=== PATIENT | female | born 1970 | race Caucasian/White ===

== ENCOUNTER 2017-11-28 12:07 | Emergency (ER) | payer MEDICAID ==
[~2017-11-28] VITALS: Ht 154.9 cm; Wt 81.6 kg
--- NOTE | 2017-11-28 12:42 | NUR ---
PT AMBULATES TO BED 4
[2017-11-28 12:46] VITALS: BP 172/94
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
--- NOTE | 2017-11-28 13:50 | NUR ---
PT STATED LEFT CHEST PAIN 10 AT THIS TIME. L CP ON & OFF THIS AM.
--- NOTE | 2017-11-28 13:57 | NUR ---
Patient being evaluated by DR AYALA at bedside.
--- NOTE | 2017-11-28 13:58 | NUR ---
EKG AT BEDSIDE.
[2017-11-28] MEDS ORDERED: KETOROLAC 60 MG/2 ML VIAL IM ONE (14:10)
[2017-11-28] MEDS ORDERED: ASPIRIN 81 MG TAB.CHEW PO ONE (14:20)
--- NOTE | 2017-11-28 14:40 | NUR ---
PT DENIES LEFT CHEST PAIN BUT STILL HAS RIGHT SHOULDER PAIN /10 AT THIS TIME. HR 43/MIN . DR AYALA NOTIFIED.
[2017-11-28 14:44] LABS: BASOPHILS # (AUTO) 0.1 K/uL (0.00-0.22); BASOPHILS % (AUTO) 0.9 % (0.0-2.0); EOSINOPHILS # (AUTO) 0.4 K/uL (0-0.4); EOSINOPHILS % (AUTO) 3.9 % (0.0-4.0); HEMATOCRIT 40.9 % (36-48); HEMOGLOBIN 13.1 g/dL (12.0-16.0); LYMPHOCYTES # (AUTO) 1.4 K/uL (2.5-16.5); LYMPHOCYTES % (AUTO) 13.5 % (20.5-51.1); MEAN CORPUSCULAR HEMOGLOBIN 27 pg (27-31); MEAN CORPUSCULAR HGB CONC 32 g/dL (33-37); MEAN CORPUSCULAR VOLUME 83.4 fL (80-94); MONOCYTES # (AUTO) 0.6 K/uL (0.8-1.0); MONOCYTES % (AUTO) 5.3 % (1.7-9.3); NEUTROPHILS % (AUTO) 76.4 % (42.2-75.2); PLATELET COUNT (AUTO) 292 K/uL (140-450); RED BLOOD CELL COUNT(AUTO) 4.91 MIL/uL (4.20-5.40); RED CELL DISTRIBUTION WIDTH 16.6 % (11.6-13.7); WHITE BLOOD COUNT (AUTO) 10.4 K/uL (4.8-10.8)
--- NOTE | 2017-11-28 15:06 | NUR ---
Patient appears to be resting comfortably in bed. BP 184/102 P 42, Respirations even and unlabored. 10/30 R SHOULDER PAIN; NOTIFIED DR AYALA.
[2017-11-28 15:47] LABS: ALBUMIN 3.2 g/dL (3.4-5.0); ANION GAP 7.9 (8-16); CARBON DIOXIDE 30.2 mmol/L (21-32); CREATININE 0.9 mg/dL (0.6-1.3); POTASSIUM 4.1 mmol/L (3.5-5.1); TOTAL BILIRUBIN 0.7 mg/dL (0.0-1.0)
[2017-11-28] MEDS ORDERED: HYDROcodone/APAP 5/325 MG 1 TAB TAB PO ONE (15:50)
--- NOTE | 2017-11-28 16:18 | NUR ---
Note emeritamatilde in EDM - 11/28/17 at 1623 by [facility] Patient discharged with v/s stable. Written and verbal after care instructions given and explained. Patient alert, oriented and verbalized understanding of instructions. Ambulatory with steady gait. All questions addressed prior to discharge. ID band removed. Patient advised to follow up with PMD. Rx of NAPROSYN & TRAMADOL given. Patient educated on indication of medication including possible reaction and side effects. Opportunity to ask questions provided and answered.
--- NOTE | 2017-11-28 16:18 | NUR ---
Patient discharged with BP 161/90. P 43 DENIES CP OR PARRISH AT THIS TIME, MD MADE AWARE. Written and verbal after care instructions given and explained. Patient alert, oriented and verbalized understanding of instructions. Ambulatory with steady gait. All questions addressed prior to discharge. ID band removed. Patient advised to follow up with PMD. Rx of NAPROSYN & TRAMADOL given. Patient educated on indication of medication including possible reaction and side effects. Opportunity to ask questions provided and answered.
[2017-11-28 16:19] VITALS: BP 161/90
== END 2017-11-28 16:18 | disposition home or self-care (01) ==
LOC: MED 12:07
DX: S40.011A Contusion of right shoulder, initial encounter (principal); S30.0XXA Contusion of lower back and pelvis, initial encounter; R07.89 Other chest pain; I10 Essential (primary) hypertension; J45.909 Unspecified asthma, uncomplicated; Z90.49 Acquired absence of other specified parts of digestive tract; Z88.1 Allergy status to other antibiotic agents; X50.0XXA Overexertion from strenuous movement or load, initial encounter; Y93.89 Activity, other specified; Y92.89 Other specified places as the place of occurrence of the external cause; Y99.8 Other external cause status
CPT/HCPCS: 36415; 71045; 73030; 80053; 84484; 85025; 93005; 96372; 99285; J1885; Q0092

== ENCOUNTER 2018-03-07 10:47 | Emergency (ER) | payer MEDICAID ==
[~2018-03-07] VITALS: Ht 160 cm; Wt 96.3 kg
[2018-03-07 10:52] VITALS: BP 169/105
[2018-03-07] MEDS ORDERED: KETOROLAC 60 MG/2 ML VIAL IM ONE (11:40)
[2018-03-07 13:10] VITALS: BP 169/105
== END 2018-03-07 13:11 | disposition home or self-care (01) ==
LOC: MED 10:47
DX: S50.02XA Contusion of left elbow, initial encounter (principal); S60.212A Contusion of left wrist, initial encounter; S90.32XA Contusion of left foot, initial encounter; J45.909 Unspecified asthma, uncomplicated; I10 Essential (primary) hypertension; Z88.1 Allergy status to other antibiotic agents; Z90.49 Acquired absence of other specified parts of digestive tract; W01.0XXA Fall on same level from slipping, tripping and stumbling without subsequent striking against object, initial encounter; Y93.89 Activity, other specified; Y92.89 Other specified places as the place of occurrence of the external cause; Y99.8 Other external cause status
CPT/HCPCS: 73080; 73110; 73630; 96372; 99283; J1885

== ENCOUNTER 2018-03-12 12:55 | Emergency (ER) | payer MEDICAID ==
[~2018-03-12] VITALS: Ht 154.9 cm; Wt 96.2 kg
[2018-03-12 13:15] VITALS: BP 177/112
--- NOTE | 2018-03-12 15:00 | NUR ---
PT AMBULATED TO ER BED 12
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
[2018-03-12] MEDS ORDERED: traMADol 50 MG TAB PO ONE (15:45)
[2018-03-12 16:00] VITALS: BP 154/89
--- NOTE | 2018-03-12 16:01 | NUR ---
Patient discharged with v/s stable. Written and verbal after care instructions given and explained. Patient alert, oriented and verbalized understanding of instructions. Ambulatory with steady gait. All questions addressed prior to discharge. ID band removed. Patient advised to follow up with PMD. Rx of TRAMADOL, IBUPROFEN given. Patient educated on indication of medication including possible reaction and side effects. Opportunity to ask questions provided and answered.
== END 2018-03-12 16:01 | disposition home or self-care (01) ==
LOC: MED 12:55
DX: S50.02XA Contusion of left elbow, initial encounter (principal); S50.12XA Contusion of left forearm, initial encounter; S90.32XA Contusion of left foot, initial encounter; I10 Essential (primary) hypertension; J44.9 Chronic obstructive pulmonary disease, unspecified; Z88.1 Allergy status to other antibiotic agents; W19.XXXA Unspecified fall, initial encounter; Y93.89 Activity, other specified; Y92.89 Other specified places as the place of occurrence of the external cause; Y99.8 Other external cause status
CPT/HCPCS: 99283

== ENCOUNTER 2018-11-27 12:42 | Emergency (ER) | payer MEDICAID ==
[~2018-11-27] VITALS: Ht 154.9 cm; Wt 91.2 kg
[2018-11-27 12:45] VITALS: BP 208/112
--- NOTE | 2018-11-27 12:53 | NUR ---
Patient ambulated to bed 1. RN evaluating patient at bedside.
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
--- NOTE | 2018-11-27 13:42 | NUR ---
DR AYALA AT BEDSIDE
--- NOTE | 2018-11-27 14:49 | NUR ---
SLING APPLIED BY GENNY EMT, PULSE WNL
[2018-11-27 15:00] VITALS: BP 187/101
--- NOTE | 2018-11-27 15:00 | NUR ---
Patient discharged with v/s stable. Written and verbal after care instructions given and explained. Patient alert, oriented and verbalized understanding of instructions. Ambulatory with steady gait. All questions addressed prior to discharge. ID band removed. Patient advised to follow up with PMD. Rx of NAPROSYN AND NORCO given. Patient educated on indication of medication including possible reaction and side effects. Opportunity to ask questions provided and answered. PT INSTRUCTED TO TAKE NAPROSYN WITH A MEAL AND TO NOT DRIVE AFTER TAKING NORCO IT MAY IMPAIR DRIVING
== END 2018-11-27 15:00 | disposition home or self-care (01) ==
LOC: MED 12:42
DX: S40.012A Contusion of left shoulder, initial encounter (principal); J44.9 Chronic obstructive pulmonary disease, unspecified; I10 Essential (primary) hypertension; Z90.49 Acquired absence of other specified parts of digestive tract; V89.2XXA Person injured in unspecified motor-vehicle accident, traffic, initial encounter; Y93.89 Activity, other specified; Y92.89 Other specified places as the place of occurrence of the external cause; Y99.8 Other external cause status
CPT/HCPCS: 73000; 73030; 99283

== ENCOUNTER 2018-12-31 18:21 | Emergency (ER) | payer MEDICAID ==
[~2018-12-31] VITALS: Ht 154.9 cm; Wt 94.3 kg
--- NOTE | 2018-12-31 18:21 | NUR ---
Patient BIBA ALS, transferred to bed 7. RN evaluating patient at bedside.
[2018-12-31 18:30] VITALS: BP 225/122
--- NOTE | 2018-12-31 18:48 | NUR ---
48 YEAR OLD PATIENT COMPLAINS OF CHEST DISCOMFORT SINCE YESTERDAY. PATIENT DENIES PAIN. BP 225/122, HR 69. CAP REFILL < 3 SECONDS. PATIENT HAS NAUSEA, VOMITTED YESTERDAY. PATIENT DENIES DIARRHEA. PATIENT COMPLAINS OF HEADACHE PAIN 10. PATIENT ALERT AND ORIENTED. BED IN LOWEST POSITION, LOCKED, GUARD RAIL UPX1.
[2018-12-31] MEDS ORDERED: LABETALOL 100 MG/20 ML VIAL IVP ONE (18:50)
[2018-12-31 19:19] LABS: BASOPHILS % (AUTO) 0.4 % (0.0-2.0); EOSINOPHILS # (AUTO) 0.3 K/uL (0-0.4); EOSINOPHILS % (AUTO) 2.4 % (0.0-4.0); HEMATOCRIT 42.2 % (36-48); HEMOGLOBIN 13.4 g/dL (12.0-16.0); LYMPHOCYTES # (AUTO) 1.4 K/uL (2.5-16.5); LYMPHOCYTES % (AUTO) 13.2 % (20.5-51.1); MEAN CORPUSCULAR HEMOGLOBIN 27 pg (27-31); MEAN CORPUSCULAR HGB CONC 32 g/dL (33-37); MEAN CORPUSCULAR VOLUME 83.7 fL (80-94); MONOCYTES # (AUTO) 0.5 K/uL (0.8-1.0); MONOCYTES % (AUTO) 4.4 % (1.7-9.3); NEUTROPHILS # (AUTO) 8.6 K/uL (1.8-7.7); NEUTROPHILS % (AUTO) 79.6 % (42.2-75.2); PLATELET COUNT (AUTO) 297 K/uL (140-450); RED BLOOD CELL COUNT(AUTO) 5.05 MIL/uL (4.20-5.40); RED CELL DISTRIBUTION WIDTH 16.9 % (11.6-13.7); WHITE BLOOD COUNT (AUTO) 10.9 K/uL (4.8-10.8)
--- NOTE | 2018-12-31 19:20 | NUR ---
RECEIVED REPORT FROM DORI PEREZ. [facility] AT THIS TIME.
--- NOTE | 2018-12-31 19:27 | NUR ---
Dr. Putnam is evaluating the patient at bedside.
[2018-12-31 19:37] LABS: ANION GAP 12.9 (8-16); CARBON DIOXIDE 28.8 mmol/L (21-32); CREATININE 0.9 mg/dL (0.6-1.3); POTASSIUM 3.7 mmol/L (3.5-5.1); TOTAL BILIRUBIN 0.5 mg/dL (0.0-1.0)
--- NOTE | 2018-12-31 19:49 | NUR ---
PT TAKEN TO CT VIA WHEELCHAIR.
--- NOTE | 2018-12-31 19:55 | NUR ---
PT BP 202/112 WITH HR 58. PT C/O THROBBING HEADACHE. CHEVYD MADE AWARE.
--- NOTE | 2018-12-31 20:00 | NUR ---
PT RETURNED FROM CT VIA WHEELCHAIR. PT ATTACHED TO MONITORING SYSTEM.
--- NOTE | 2018-12-31 20:34 | NUR ---
BP 188/[address] SAL MADE AWARE.
[2018-12-31 20:42] LABS: APPEARANCE,URINE HAZY (CLEAR); BILIRUBIN,URINE NEGATIVE (NEGATIVE); BLOOD, URINE NEGATIVE (NEGATIVE); COLOR,URINE YELLOW (YELLOW); LEUKOCYTE ESTERASE ,URINE 1+ (NEGATIVE); NITRITE, URINE NEGATIVE (NEGATIVE); UGLUCOSE NEGATIVE (NEGATIVE)
[2018-12-31 20:54] LABS: RBC,URINE NONE SEEN /HPF (0-5)
[2018-12-31 20:55] LABS: WBC,URINE 16-25 (MOD) /HPF (0-5)
[2018-12-31] MEDS ORDERED: KETOROLAC 30 MG/ML VIAL IVP ONE (20:55)
[2018-12-31] MEDS ORDERED: hydrALAZINE 20 MG/ML VIAL IVP ONE (21:20)
--- NOTE | 2018-12-31 21:20 | NUR ---
PT STATED SOME RELIEF OF PAIN. LIGHT TURNED OFF FOR PT COMFORT.
[2018-12-31] MEDS ORDERED: LEVOFLOXACIN 500 MG/D5W PREMIX 100 ML IV ONE (21:50)
--- NOTE | 2018-12-31 22:05 | NUR ---
PT BP 165/89 WITH HR 80, WILL CONTINUE TO MONITOR.
--- NOTE | 2018-12-31 23:00 | NUR ---
PT SEEN WITH EYES CLOSED. VISIBLE CHEST RISE AND FALL. FAMILY AT BEDSIDE. VSS. WILL CONTINUE TO MONITOR.
[2018-12-31 23:14] VITALS: BP 140/82
--- NOTE | 2018-12-31 23:14 | NUR ---
Patient discharged with v/s stable. Written and verbal after care instructions given and explained. Patient alert, oriented and verbalized understanding of instructions. Ambulatory with steady gait. All questions addressed prior to discharge. ID band removed. Patient advised to follow up with PMD. Rx of CIPRO, HYDRALAZINE given. Patient educated on indication of medication including possible reaction and side effects. Opportunity to ask questions provided and answered.
== END 2018-12-31 23:14 | disposition home or self-care (01) ==
LOC: MED 18:21
DX: I16.0 Hypertensive urgency (principal); N39.0 Urinary tract infection, site not specified; J44.9 Chronic obstructive pulmonary disease, unspecified; Z88.1 Allergy status to other antibiotic agents
CPT/HCPCS: 36415; 70450; 71045; 80053; 81001; 81025; 83880; 84484; 85025; 87086; 93005; 96365; 96375; 99284; J0360; J1885; J1956; J3490; Q0092

== ENCOUNTER 2019-05-18 19:34 | Emergency (ER) | payer MEDICAID ==
[~2019-05-18] VITALS: Ht 152.4 cm; Wt 97.5 kg
[2019-05-18 19:44] VITALS: BP 206/118
[2019-05-18] MEDS ORDERED: hydrALAZINE 20 MG/ML VIAL IVP ONE (21:25)
[2019-05-18 22:28] VITALS: BP 139/81
== END 2019-05-18 22:27 | disposition home or self-care (01) ==
LOC: MED 19:34
DX: S90.32XA Contusion of left foot, initial encounter (principal); I10 Essential (primary) hypertension; J44.9 Chronic obstructive pulmonary disease, unspecified; Z88.1 Allergy status to other antibiotic agents; W20.8XXA Other cause of strike by thrown, projected or falling object, initial encounter; Y93.89 Activity, other specified; Y92.098 Other place in other non-institutional residence as the place of occurrence of the external cause; Y99.8 Other external cause status
CPT/HCPCS: 73630; 96374; 99283; J0360; Q0092

== ENCOUNTER 2019-12-06 14:15 | Inpatient (IN) | payer MEDICAID ==
[~2019-12-06] VITALS: Ht 154.9 cm; Wt 97.5 kg
[2019-12-06 14:19] VITALS: BP 169/107
--- NOTE | 2019-12-06 14:22 | NUR ---
Patient ambulated to bed 11. RN evaluating patient at bedside.
--- NOTE | 2019-12-06 14:25 | NUR ---
49/F c/o abd pain (mostly left sided) with abd bloating, 3x N/V overnight, and constipation since yesterday. Pain is crampy. Pt used fleet glycerin suppository and had diarrhea this morning. Pt did not resolve with passing of BM. VSS. medhx: COPD, HTN
--- NOTE | 2019-12-06 14:52 | NUR ---
DR. REYNOSO EVALUATING PT AT BEDSIDE
[2019-12-06] MEDS ORDERED: ONDANSETRON 4 MG/2 ML VIAL IVP ONE (14:55)
[2019-12-06] MEDS ORDERED: KETOROLAC 30 MG/ML VIAL IVP ONE (14:55)
[2019-12-06 15:08] LABS: APPEARANCE,URINE CLEAR (CLEAR); BILIRUBIN,URINE NEGATIVE (NEGATIVE); BLOOD, URINE 3+ (NEGATIVE); COLOR,URINE YELLOW (YELLOW); LEUKOCYTE ESTERASE ,URINE 1+ (NEGATIVE); NITRITE, URINE NEGATIVE (NEGATIVE); PH,URINE 5.5 (5.0-9.0); UGLUCOSE NEGATIVE (NEGATIVE)
--- NOTE | 2019-12-06 15:13 | NUR ---
EDDIE BLOOD TUBES AND URINE SAMPLE HANDED TO TAKER OFF
[2019-12-06 15:22] LABS: RBC,URINE >100 /HPF (0-5)
[2019-12-06 15:24] LABS: BASOPHILS # (AUTO) 0.1 K/uL (0.00-0.22); BASOPHILS % (AUTO) 0.5 % (0.0-2.0); EOSINOPHILS # (AUTO) 0.1 K/uL (0-0.4); EOSINOPHILS % (AUTO) 0.4 % (0.0-4.0); LYMPHOCYTES # (AUTO) 0.7 K/uL (2.5-16.5); LYMPHOCYTES % (AUTO) 5.2 % (20.5-51.1); MEAN CORPUSCULAR HEMOGLOBIN 27 pg (27-31); MEAN CORPUSCULAR HGB CONC 32 g/dL (33-37); MEAN CORPUSCULAR VOLUME 81.9 fL (80-94); MONOCYTES # (AUTO) 0.8 K/uL (0.8-1.0); MONOCYTES % (AUTO) 5.5 % (1.7-9.3); NEUTROPHILS # (AUTO) 12.3 K/uL (1.8-7.7); NEUTROPHILS % (AUTO) 88.4 % (42.2-75.2); PLATELET COUNT (AUTO) 286 K/uL (140-450); RED BLOOD CELL COUNT(AUTO) 4.88 MIL/uL (4.20-5.40); RED CELL DISTRIBUTION WIDTH 17.5 % (11.6-13.7); WHITE BLOOD COUNT (AUTO) 13.9 K/uL (4.8-10.8)
--- NOTE | 2019-12-06 15:38 | NUR ---
back to bed 11 via wheelchair
[2019-12-06 15:39] LABS: ALBUMIN 3.3 g/dL (3.4-5.0); ANION GAP 11.6 (8-16); CARBON DIOXIDE 28.8 mmol/L (21-32); CREATININE 1.8 mg/dL (0.6-1.3); POTASSIUM 3.4 mmol/L (3.5-5.1); TOTAL BILIRUBIN 0.7 mg/dL (0.0-1.0)
--- NOTE | 2019-12-06 15:46 | NUR ---
DR. REYNOSO RE-EVALUATING PT AT BEDSIDE
[2019-12-06] MEDS ORDERED: NACL 0.9% 1,000 ML IV ONE (16:40)
[2019-12-06] MEDS ORDERED: MORPHINE SULFATE 4 MG/ML SYR IVP ONE (16:40)
[2019-12-06] MEDS ORDERED: HYDR-39 PO (16:51)
[2019-12-06] MEDS ORDERED: HYDR-1100 PO (16:51)
[2019-12-06] MEDS ORDERED: LON2.5 PO (16:51)
[2019-12-06] MEDS ORDERED: cefTRIAXone 1,000 MG VIAL ONE (17:02)
[2019-12-06] MEDS ORDERED: ZOLPIDEM 5 MG TAB PO PRN (17:30)
[2019-12-06] MEDS ORDERED: MORPHINE SULFATE 2 MG/ML SYR IVP PRN (17:30)
[2019-12-06] MEDS: NACL 0.9% 1,000 ML IV SCH ×2 (17:30→23:53)
[2019-12-06] MEDS ORDERED: LORazepam 2 MG/ML VIAL IM/IVP PRN (17:30)
[2019-12-06] MEDS ORDERED: ONDANSETRON 4 MG/2 ML VIAL IVP PRN (17:30)
[2019-12-06] MEDS ORDERED: DOCUSATE SODIUM 100 MG GELCAP PO PRN (17:30)
--- NOTE | 2019-12-06 17:42 | NUR ---
DR. EVANS EVALUATING PT AT BEDSIDE
[2019-12-06 17:59] LABS: PROTHROMBIN TIME 9.6 secs (10.8-13.4)
[2019-12-06 18:03] LABS: CHOL/HDL RATIO 4.8 (1-4.5); FREE T4 (FREE THYROXINE) 1.12 ng/dL (0.76-1.46); MAGNESIUM 1.8 mg/dL (1.8-2.4); PHOSPHORUS 3.6 mg/dL (2.5-4.9); THYROID STIMULATING HORMONE 2.65 uIU/mL (0.34-3.74)
[2019-12-06 18:22] LABS: BARBITURATE, URINE NEGATIVE ng/ml (NEG <=200); BENZODIAZEPINE, URINE NEGATIVE ng/mL (NEG <=200); CANNABINOID, URINE NEGATIVE ng/mL (NEG <=50); COCAINE, URINE NEGATIVE ng/mL (NEG <=300); OPIATE, URINE NEGATIVE ng/mL (NEG <=2000); PHENCYCLIDINE SCREEN,URINE NEGATIVE ng/mL (NEG <=25)
--- NOTE | 2019-12-06 18:25 | NUR ---
RECEIVED REPORT FROM ER NURSE JESUS ALBERTO ADMITTED TO THE UNIT VIA WHEELCHAIR, ON 2LPM OXYGEN VIA NC, AAOX4, AMBULATORY, CONTINENT, SKIN INTACT, IV SITES INTACT AND PATENT ON LEFT AC G20 RUNNING A BOLUS OF SODIUM CHLORIDE.ASSISTED TO BED AND ORIENTED TO ROOM, VITAL SIGNS TAKEN BP 127/80, KS 84 RR 20 TEMP: 98.2 OXYGEN SAT 93%. PATIENT IS ON OXYGEN 2 LPM AT HOME FOR COPD. CT ABDOMEN DONE WHICH SHOWS MILD-MODERATE LEFT HYDRONEPHROSIS POSSIBLE PYELONEPHRITIS. ER NURSE GAVE ZOFRAN 4MG, TORADOL, MORPHINE AT 1710 AND ROCEPHIN 1G AND 1LITER SODIUM CHLORIDE BOLUS.SAFETY MEASURES IN PLACE, CALL LIGHT WITHIN REACH.
--- NOTE | 2019-12-06 18:25 | NUR ---
Patient will be admitted to care of DR. EVANS. Admited to TELE. Will go to room 125A. Belongings list completed. Report to MAGEN MEADOWS.
--- NOTE | 2019-12-06 19:05 | NUR ---
ENDORSED PT TO NIGHT NURSE FOR CONTINUITY OF CARE.PT IS STABLE
--- NOTE | 2019-12-06 19:08 | NUR ---
RECEIVED PATIENT IN STABLE CONDITION FROM AM SHIFT NURSE FOR CONTINUITY OF CARE. TELE PATIENT. AAOX4 ABLE TO MAKE NEEDS KNOWN. RESPIRATIONS EVEN, UNLABORED. CONTINUES ON O2 2L VIA NC, O2SAT 98%. NO C/O PAIN. NO S/S ACUTE DISTRESS. SKIN ASSESSMENT COMPLETE. SKIN INTACT. SKIN WARM, DRY. IV SITE TO LEFT AC 20G PATENT/INTACT, FLUIDS INFUSING WELL. ABDOMEN SOFT, NONTENDER, NONDISTENDED. BOWEL SOUNDS ACTIVE X4 QUADRANTS. PATIENT IS CONTINENT OF B/B. PLAN OF CARE DISCUSSED WITH PATIENT. PATIENT ORIENTED TO CALL LIGHT/STAFF/ROOM. MRSA SCREEN COMPLETED. CALL LIGHT WITHIN REACH.
[2019-12-06] MEDS ORDERED: POTASSIUM CHLORIDE 10 MEQ TABER PO ONE (19:35)
[2019-12-06 20:00] VITALS: BP 129/69
[2019-12-06] MEDS: hydrALAZINE 25 MG TAB PO SCH (20:08)
[2019-12-06] MEDS: minoxidiL 2.5 MG TAB PO SCH (20:09)
--- NOTE | 2019-12-06 21:05 | NUR ---
DUE MEDS GIVEN. NO C/O PAIN. NO S/S ACUTE DISTRESS. CALL LIGHT WITHIN REACH.
--- NOTE | 2019-12-06 23:10 | NUR ---
PATIENT IS RESTING COMFORTABLY IN BED WITH EYES CLOSED. NO S/S ACUTE DISTRESS. CALL LIGHT WITHIN REACH.
[2019-12-07] VITALS: BP 113/65
--- NOTE | 2019-12-07 01:15 | NUR ---
MADE ROUNDS. PATIENT IS ASLEEP. NO S/S ACUTE DISTRESS. CALL LIGHT WITHIN REACH.
--- NOTE | 2019-12-07 03:48 | NUR ---
PATIENT IS ASLEEP AND IN NO DISTRESS. CALL LIGHT WITHIN REACH.
[2019-12-07 04:00] VITALS: BP 119/68
[2019-12-07 05:50] LABS: BASOPHILS % (AUTO) 0.4 % (0.0-2.0); EOSINOPHILS # (AUTO) 0.1 K/uL (0-0.4); EOSINOPHILS % (AUTO) 1.2 % (0.0-4.0); HEMATOCRIT 38.7 % (36-48); HEMOGLOBIN 12.2 g/dL (12.0-16.0); LYMPHOCYTES # (AUTO) 0.6 K/uL (2.5-16.5); MEAN CORPUSCULAR HEMOGLOBIN 26 pg (27-31); MEAN CORPUSCULAR HGB CONC 31 g/dL (33-37); MEAN CORPUSCULAR VOLUME 83.7 fL (80-94); MONOCYTES # (AUTO) 0.4 K/uL (0.8-1.0); MONOCYTES % (AUTO) 3.8 % (1.7-9.3); NEUTROPHILS # (AUTO) 10.2 K/uL (1.8-7.7); NEUTROPHILS % (AUTO) 89.6 % (42.2-75.2); PLATELET COUNT (AUTO) 299 K/uL (140-450); RED BLOOD CELL COUNT(AUTO) 4.63 MIL/uL (4.20-5.40); RED CELL DISTRIBUTION WIDTH 17.5 % (11.6-13.7); WHITE BLOOD COUNT (AUTO) 11.3 K/uL (4.8-10.8)
--- NOTE | 2019-12-07 05:51 | NUR ---
PATIENT RESTING COMFORTABLY IN BED. NO C/O PAIN. NO S/S ACUTE DISTRESS. CALL LIGHT WITHIN REACH.
[2019-12-07 06:06] LABS: ANION GAP 13.7 (8-16); CARBON DIOXIDE 25.4 mmol/L (21-32); CREATININE 1.3 mg/dL (0.6-1.3); POTASSIUM 4.1 mmol/L (3.5-5.1)
[2019-12-07 06:46] LABS: MAGNESIUM 1.9 mg/dL (1.8-2.4); PHOSPHORUS 3.9 mg/dL (2.5-4.9)
--- NOTE | 2019-12-07 07:15 | NUR ---
RECEIVED PATIENT IN STABLE CONDITION FROM PM SHIFT NURSE FOR CONTINUITY OF CARE. TELE PATIENT. AAOX4 ABLE TO MAKE NEEDS KNOWN. RESPIRATIONS EVEN, UNLABORED. CONTINUES ON O2 2L VIA NC, O2SAT 99%. NO C/O PAIN AT THIS TIME. NO S/S ACUTE DISTRESS. SKIN ASSESSMENT COMPLETE. SKIN INTACT. SKIN WARM, DRY. IV SITE TO LEFT AC 20G PATENT, ASYMPTOMATIC, AND INTACT, INFUSING FLUIDS WELL. ABDOMEN SOFT, NONTENDER, NONDISTENDED. BOWEL SOUNDS ACTIVE X4 QUADRANTS. PLAN OF CARE DISCUSSED WITH PATIENT.PATIENT VERBALIZED UNDERSTANDING. CALL LIGHT WITHIN REACH. WILL CONTINUE TO MONITOR PATIENT.
[2019-12-07 08:00] VITALS: BP 138/92
[2019-12-07] MEDS: lisinopriL 20 MG TAB PO SCH (08:52)
[2019-12-07] MEDS: hydrALAZINE 25 MG TAB PO SCH ×2 (08:52→20:37)
[2019-12-07] MEDS: minoxidiL 2.5 MG TAB PO SCH ×2 (08:52→20:37)
--- NOTE | 2019-12-07 08:52 | NUR ---
SCHEDULED MEDICATIONS GIVEN. PATIENT TOLERATED THEM WELL. NO COMPLAINTS AT THIS TIME. CALL LIGHT WITHIN REACH, WILL CONTINUE TO MONITOR PATIENT.
[2019-12-07] MEDS: hydroCHLOROthiazide 25 MG TAB PO SCH (08:53)
--- NOTE | 2019-12-07 09:20 | NUR ---
PATIENT HAS BEEN SCREENED AND CATEGORIZED LOW NUTRITION RISK. PATIENT WILL BE SEEN WITHIN 7 DAYS OF ADMISSION. 12/13/[address]
[2019-12-07] MEDS: NACL 0.9% 1,000 ML IV SCH ×2 (10:23→20:36)
[2019-12-07] MEDS: ACETAMINOPHEN 325 MG TAB PO PRN ×2 (10:32→22:07)
--- NOTE | 2019-12-07 10:32 | NUR ---
PATIENT C/O OF ABD PAIN 5/10, OFFERED PRN PAIN MEDICATION, PATIENT REFUSED AT THIS TIME. PATIENT DID ACCEPT TYLENOL PRN FOR C/O HEADACHE. WILL CONTINUE TO MONITOR PATIENT.
[2019-12-07] MEDS ORDERED: MONTELUKAST SODIUM 10 MG TAB PO SCH (11:11)
[2019-12-07 12:00] VITALS: BP 120/70
--- NOTE | 2019-12-07 12:04 | NUR ---
PATIENT C/O OF ANXIETY, PRN ATIVAN GIVEN. DR. EVANS IN TO SPEAK TO THE PATIENT. PATIENT C/O OF ANXIETY AND CHEST TIGHTNESS. BP 120/70, HR 110, O2 99% ON 2L O2 VIA NC, TEMP 98.2, RR 23. NEW ORDERS IN. WILL WAIT FOR RESULTS. CALLED RT TO COME ASSESS PATIENT. CALL LIGHT WITHIN REACH, WILL CONTINUE TO MONITOR PATIENT.
--- NOTE | 2019-12-07 13:39 | NUR ---
DISCHARGE PLANNING: THIS IS A 49 Y/O FEMALE PATIENT FROM HOME, WHO CAME IN DUE TO ABDOMINAL PAIN. PAST MEDICAL HISTORY INCLUDE HTN, TRESSA, COPD. INITIAL DIAGNOSIS OF PYELONEPHRITIS WITH HYDRONEPHROSIS. CURRENT LABS INCLUDE WBC 11.3, H/H 12.2/38.7, NA/K 139/4.1, BUN/CREA 18/1.3. ON ROCEPHIN AND ORETIC PO. ABD/PELVIS CT SHOWED MILD TO MODERATE HYDRONEPHROSIS WITHOUT VISUALIZATION OF AN OBSTRUCTING CALCULUS. CXR NEGATIVE. CARDIO AND URO CONSULTS IN PLACE. DC PLAN BACK TO HOME ONCE STABLE. Addendum: 12/09/19 at 1225 by Marilyn Rivas CM SEEN BY UROLOGIST DR CHRISTIANSON - REQUESTED RENAL U/S.
[2019-12-07] MEDS ORDERED: ALBUTEROL SULFATE/IPRATROPIU 3 ML SOL IH PRN (13:55)
--- NOTE | 2019-12-07 14:55 | NUR ---
PATIENT RESTING IN BED, RESPIRATIONS EVEN AND UNLABORED ON 2L O2 VIA NC. ALL NEEDS MET AT THIS TIME. CALL LIGHT WITHIN REACH, WILL CONTINUE TO MONITOR PATIENT.
[2019-12-07 16:00] VITALS: BP 117/62
--- NOTE | 2019-12-07 17:00 | NUR ---
SCHEDULED MEDICATION GIVEN. PATIENT TOLERATING IT. NO COMPLAINTS AT THIS TIME. PATIENT'S STATES TOLERABLE PAIN AND REFUSED PRN PAIN MEDICATION. CALL LIGHT WITHIN REACH, WILL CONTINUE TO MONITOR PATIENT.
--- NOTE | 2019-12-07 19:10 | NUR ---
RECEIVED PT SLEEPING - CHEST RISE AND FALL - PER AM NURSE - PT GOT ATIVAN BECAUSE THE PT. SHOWED ANXIETY , GOT TYLENOL DUE TO PT'S COMPLAINED OF HEADACHE . PER AM NURSE PT HAS HX OF SLEEP APNEA - AND SHE AND DR ELIZABETH HAD CONVERSATION THIS AM AND SHE ASKED IF SHE AGREE FOR CPAP AT NIGHT FOR THE PT. AND DR. ELIZABETH AGREED FOR THAT , BUT SHE DID NOT PUT AN ORDER FOR THAT - WILL REMIND DR. ELIZABETH . IV SITE INTACT AND PATENT . ON TELE MONITOR . WILL CONT. TO MONITOR. CALL LIGHT WITHIN REACH .
--- NOTE | 2019-12-07 19:10 | NUR ---
REPORT GIVEN TO ACQUISITION MANAGER NURSE AT BEDSIDE FOR CONTINUITY OF CARE. PATIENT SLEEPING COMFORTABLY IN BED, IN STABLE CONDITION.
[2019-12-07 20:00] VITALS: BP 115/75
--- NOTE | 2019-12-07 20:05 | NUR ---
RE VIST PT. - PT AWAKE , AAOX4 , DENIES ANY PAIN - REMINDS THE USE OF CALL LIGHT . PLAN OF CARE DISCUSS AND VERBALIZE UNDERSTANDING . SAFETY MEASURE IN PLACE . WILL CONT. TO MONITOR. Addendum: 12/07/19 at 2007 by Amanda Bedolla RN THE WORD VIST IN ABOVE NURSE'S NOTE IS TYPOGRAPHICALLY ERROR , INSTEAD OF VISIT .- CARLOS
--- NOTE | 2019-12-07 20:08 | NUR ---
TEXT DR. ELIZABETH ABOUT CONFIRMATION OF CPAP ORDER - WILL WAIT THE RESPONSE .
--- NOTE | 2019-12-07 20:51 | NUR ---
PT. REFUSE FOR CPAP - I EXPLAIN TO HER THE IMPORTANCE OF IT - BUT STILL PT. REFUSE. Addendum: 12/07/19 at 2052 by Amanda Bedolla RN PT SAID SHE IS COMFORTABLE TO GO SLEEP WTH OUT CPAP , PT. IS ON 2LPM/NC - O2 SAT WNL .
--- NOTE | 2019-12-07 20:52 | NUR ---
PT SLEEPING COMFORTABLY SOME SNORING NOTED WILL CONTINUE TO MONITOR
[2019-12-08] VITALS: BP 106/60
--- NOTE | 2019-12-08 | NUR ---
MADE ROUNDS , NO S/SX OF ACUTE DISTRESS NOTED AT THIS TIME . CALL LIGHT WITHIN REACH .
--- NOTE | 2019-12-08 02:00 | NUR ---
SLEEPING - ON O2 SAT MONITOR - O2 SAT WNL .
[2019-12-08 04:00] VITALS: BP 130/78
--- NOTE | 2019-12-08 04:00 | NUR ---
MADE ROUNDS , NO S/SX OF ACUTE DISTRESS NOTED .
[2019-12-08 05:40] LABS: BASOPHILS # (AUTO) 0.1 K/uL (0.00-0.22); BASOPHILS % (AUTO) 0.9 % (0.0-2.0); HEMATOCRIT 38.4 % (36-48); HEMOGLOBIN 12.1 g/dL (12.0-16.0); LYMPHOCYTES # (AUTO) 0.4 K/uL (2.5-16.5); LYMPHOCYTES % (AUTO) 3.5 % (20.5-51.1); MEAN CORPUSCULAR HEMOGLOBIN 26 pg (27-31); MEAN CORPUSCULAR HGB CONC 32 g/dL (33-37); MEAN CORPUSCULAR VOLUME 83.5 fL (80-94); MONOCYTES # (AUTO) 0.4 K/uL (0.8-1.0); MONOCYTES % (AUTO) 3.5 % (1.7-9.3); NEUTROPHILS % (AUTO) 92.1 % (42.2-75.2); PLATELET COUNT (AUTO) 329 K/uL (140-450); RED CELL DISTRIBUTION WIDTH 17.8 % (11.6-13.7); WHITE BLOOD COUNT (AUTO) 10.9 K/uL (4.8-10.8)
--- NOTE | 2019-12-08 06:00 | NUR ---
SLEEPING - O2 SAT WNL . - ON O2 SAT MONITORING
[2019-12-08 06:06] LABS: ANION GAP 10.3 (8-16); CARBON DIOXIDE 29.7 mmol/L (21-32)
[2019-12-08 06:37] LABS: MAGNESIUM 2.1 mg/dL (1.8-2.4); PHOSPHORUS 3.6 mg/dL (2.5-4.9)
--- NOTE | 2019-12-08 07:24 | NUR ---
ENDORSED TO AM NURSE - PT - STABLE .
[2019-12-08 08:00] VITALS: BP 141/84
--- NOTE | 2019-12-08 08:00 | NUR ---
RECEIVED REPORT FROM EDUCATIONAL PROGRAM ASSISTANT, PATIENT ALERT AWAKE ORIENTED X4, NOT IN ANY DISTRESS NOTED. INITIAL ASSESSMENT INITIATED. C/O ABDOMINAL PAIN, WILL MEDICATE ORDERED. NPO OBSERVED ORDER. WAITING FOR THE UROLOGY CONSULT. PATIENT USING 2L NC, VERBALIZED THAT SHE'S FINE WITH THAT. PATIENT SNORES MOST OF THE TIME. REMIND HER THAT SHE NEEDS TO USE HER CPAP AND IN AGREEABLE. RT WILL DO ABG. WILL CONTINUE TO MONITOR.
[2019-12-08] MEDS: hydroCHLOROthiazide 25 MG TAB PO SCH (08:40)
[2019-12-08] MEDS: hydrALAZINE 25 MG TAB PO SCH ×2 (08:40→20:56)
[2019-12-08] MEDS: MONTELUKAST SODIUM 10 MG TAB PO SCH (08:40)
[2019-12-08] MEDS: lisinopriL 20 MG TAB PO SCH (08:42)
[2019-12-08] MEDS: minoxidiL 2.5 MG TAB PO SCH ×2 (08:43→21:00)
[2019-12-08] MEDS: NACL 0.9% 1,000 ML IV SCH ×2 (08:50→19:30)
--- NOTE | 2019-12-08 09:45 | NUR ---
RECEIVED REPORT FROM NURSE CONNOLLY FOR CONTINUITY OF CARE, PT IS STABLE, PT ASLEEP, PT ON 2L OXYGEN VIA NC, PT HAS LEFT AC 20G INFUSING NS AT 100 ML/H, SKIN INTACT, BED IN LOW POSITION AND SAFETY MEASURES IN PLACE, CALL LIGHT WITHIN REACH, WILL CONTINUE TO MONITOR.
--- NOTE | 2019-12-08 09:55 | NUR ---
REPORT GIVEN TO DORI ZARATE FOR CONTINUITY OF CARE.
--- NOTE | 2019-12-08 11:00 | NUR ---
PT SLEEPING IN BED, NO SIGNS OF DISTRESS NOTED, RESPIRATIONS ARE EVEN AND UNLABORED ON ROOM AIR, CALL LIGHT WITHIN REACH, WILL CONTINUE TO MONITOR.
[2019-12-08 12:00] VITALS: BP 114/64
--- NOTE | 2019-12-08 13:00 | NUR ---
PT SITTING UP IN BED, NO SIGNS OF DISTRESS NOTED, PT IS STABLE, CALL LIGHT WITHIN REACH, WILL CONTINUE TO MONITOR.
--- NOTE | 2019-12-08 15:03 | NUR ---
IV ALARMING, SECURED IV TO ARM, PT IS SITTING IN CHAIR, NO SIGNS OF DISTRESS NOTED, RESPIRATIONS ARE EVEN AND UNLABORED ON ROOM AIR, PT IS STABLE, WILL CONTINUE TO MONITOR.
[2019-12-08 16:00] VITALS: BP 106/72
--- NOTE | 2019-12-08 17:28 | NUR ---
ADMINISTERED SCHEDULED MEDICATION, MEDICATION EDUCATION PROVIDED, PT VERBALIZED UNDERSTANDING, PT TOLERATED WELL, PT IS STABLE, CALL LIGHT WITHIN REACH, WILL CONTINUE TO MONITOR.
--- NOTE | 2019-12-08 19:20 | NUR ---
ENDORSE PT TO NIGHT NURSE FOR CONTINUITY OF CARE, PT IS STABLE
--- NOTE | 2019-12-08 19:20 | NUR ---
RECEIVED BEDSIDE REPORT FROM DAY SHIFT NURSE FOR CONTINUITY OF CARE. PT IS AWAKE AND ALERT, RESPONDING APPROPRIATELY. PT IS AT 90% O2 SAT WITH BREATHING UNLABORED. WAS INFORMED THAT PT CAN DESAT DURING SLEEP, CPAP AT BEDSIDE. PT IS AMBULATORY WITH BATHROOM PRIVILEGES. STRAINED URINE AT CHANGE OF SHIFT FOR CALCULUS BUT NO CALCULUS WAS NOTED. SKIN IS WARM, DRY, AND INTACT. IV IS IN THE LEFT AC 20 GAUGE RUNNING NS AT 100 ML PER HOUR PER ORDER. PLAN OF CARE WAS DISCUSSED. BED IS IN THE LOWEST POSITION AND CALL LIGHT IS WITHIN REACH. PT IS STABLE.
--- NOTE | 2019-12-08 20:13 | NUR ---
PT LAYING IN BED WATCHING TV PT STATED SHE GETS ANXIOUS W/ NIV BUT IS WILLING TO ATTEMPT PAP PT IS REQUESTING TO COME BACK FOR NOC NIV ROUGHLY 2200 PT RESTING COMFORTABLY ON 2LNC SPO2 99% HR 100 NO DISTRESS NOTED AT THIS TIME
--- NOTE | 2019-12-08 21:30 | NUR ---
PT IS AWAKE AND ALERT. NO COMPLAINTS OF PAIN. PT VOIDED AND URINE WAS STRAINED FOR CALCULUS. NO CALCULUS WAS IN THE URINE SO THERE WAS NOTHING TO BE COLLECTED. PT WILL CONTINUE TO COLLECT URINE IN THE COLLECTION CONTAINER FOR STRAINING. BREATHING IS UNLABORED. NO DISTRESS NOTED.
[2019-12-08 23:07] VITALS: BP 93/51
--- NOTE | 2019-12-08 23:07 | NUR ---
PT PLACED ON NOC PAP PT PLACED ON CPAP OF 8 (HOME UNIT SET @ 8 CMH2O PER PT) PT WAS A LITTLE ANX/UNCOMFORTABLE W/ NIV AND 15MIN RAMP ENABLED FOR PT COMFORT
--- NOTE | 2019-12-08 23:10 | NUR ---
RT AT BEDSIDE. PLACED CPAP ON PT FOR SLEEP. BREATHING IS UNLABORED. CHEST RISE AND FALL IS SYMMETRICAL. O2 SAT IS 98%. WILL CONTINUE TO MONITOR PT'S BREATHING.
[2019-12-09] VITALS: BP 103/48
--- NOTE | 2019-12-09 01:00 | NUR ---
ROUNDED ON PT. SHE IS ASLEEP IN HIGH FOWLERS POSITION. NO RESPIRATORY DISTRESS AT THIS TIME. O2 SAT IS 95%. CHEST RISE AND FALL IS SYMMETRICAL. BED IS IN THE LOWEST POSITION CALL LIGHT IS WITHIN REACH. BELONGINGS AND CELL PHONE ARE AT THE BEDSIDE. IV IS PATENT AND INFUSING.
--- NOTE | 2019-12-09 02:31 | NUR ---
RT IS AT BEDSIDE. CHECKED ON PT WITH CPAP. SHE IS TOLERATING CPAP WELL. O2 SAT IS 97%. BREATHING IS UNLABORED. WILL CONTINUE TO MONITOR BREATHING PATTERN.
--- NOTE | 2019-12-09 04:30 | NUR ---
ROUNDED ON PT. SHE IS ASLEEP IN HIGH FOWLERS. CPAP IS ON AND O2 SAT IS 98%. PT IS TOLERATING TREATMENT WELL. PT HAS WOKEN UP ONLY A FEW TIMES SINCE THE CPAP WAS PLACED. SLEEP IS LESS INTERRUPTED. BREATHING IS UNLABORED. CELL PHONE IS AT BEDSIDE WITH OTHER BELONGINGS. URINE HAS BEEN STRAINED AND STILL NO CALCULUS. PT IS STABLE.
[2019-12-09 05:30] LABS: BASOPHILS # (AUTO) 0.1 K/uL (0.00-0.22); BASOPHILS % (AUTO) 0.7 % (0.0-2.0); EOSINOPHILS # (AUTO) 0.4 K/uL (0-0.4); EOSINOPHILS % (AUTO) 3.2 % (0.0-4.0); HEMATOCRIT 35.3 % (36-48); HEMOGLOBIN 11.3 g/dL (12.0-16.0); LYMPHOCYTES # (AUTO) 0.7 K/uL (2.5-16.5); LYMPHOCYTES % (AUTO) 6.5 % (20.5-51.1); MEAN CORPUSCULAR HEMOGLOBIN 27 pg (27-31); MEAN CORPUSCULAR HGB CONC 32 g/dL (33-37); MONOCYTES # (AUTO) 0.7 K/uL (0.8-1.0); MONOCYTES % (AUTO) 5.9 % (1.7-9.3); NEUTROPHILS # (AUTO) 9.3 K/uL (1.8-7.7); NEUTROPHILS % (AUTO) 83.7 % (42.2-75.2); PLATELET COUNT (AUTO) 300 K/uL (140-450); RED BLOOD CELL COUNT(AUTO) 4.25 MIL/uL (4.20-5.40); RED CELL DISTRIBUTION WIDTH 17.3 % (11.6-13.7); WHITE BLOOD COUNT (AUTO) 11.1 K/uL (4.8-10.8)
[2019-12-09] MEDS: NACL 0.9% 1,000 ML IV SCH ×3 (05:30→21:30)
[2019-12-09 06:03] LABS: ANION GAP 9.8 (8-16); CARBON DIOXIDE 29.8 mmol/L (21-32); CREATININE 0.9 mg/dL (0.6-1.3); POTASSIUM 3.6 mmol/L (3.5-5.1)
[2019-12-09 06:08] LABS: MAGNESIUM 1.6 mg/dL (1.8-2.4); PHOSPHORUS 2.5 mg/dL (2.5-4.9)
--- NOTE | 2019-12-09 06:29 | NUR ---
PT IS ASLEEP. NO RESPIRATORY DISTRESS NOTED. IV IS PATENT AND INFUSING. PT IS NOT SHOW ANY SIGNS OF DISTRESS.
--- NOTE | 2019-12-09 07:20 | NUR ---
RECEIVED PT ON CPAP. PT IS STILL CURRENTLY SLEEPING AND WILL COME OFF CPAP WHEN AWAKE.
--- NOTE | 2019-12-09 07:20 | NUR ---
ENDORSED PT TO DAY SHIFT NURSE FOR CONTINUITY OF CARE. PLAN OF CARE DISCUSSED. PT IS STABLE AT THIS TIME. PT IS ASLEEP AND CPAP IS IN PLACE. O2 SAT IS 98%.
--- NOTE | 2019-12-09 07:21 | NUR ---
RECEIVED REPORT FROM PM RNEZRA. PT CAME FROM HOME. CC: LT ABD FLANK PAIN. DX: PYELONEPHRITIS WITH HYDRONEPHROSIS. HX: COPD, HTN, KIDNEY STONES, SLEEP APNEA. PT IS ALLERGIC TO VANCO. PT IS FULL CODE. IV: LAC 20G RUNNING NS AT 100. DIET: CARDIAC. PT IS ABLE TO AMBULATE, INDEPENDENT. O2: PT IS ON CPAP PM, NC 2L DAY. PPLAN: STRAIN URINE FOR KIDNEY STONES, F/U STRESS TEST OUTPATIENT
[2019-12-09 08:00] VITALS: BP 118/77
[2019-12-09] MEDS: lisinopriL 20 MG TAB PO SCH (08:55)
[2019-12-09] MEDS: hydrALAZINE 25 MG TAB PO SCH ×2 (08:55→20:24)
[2019-12-09] MEDS: MONTELUKAST SODIUM 10 MG TAB PO SCH (08:56)
[2019-12-09] MEDS: minoxidiL 2.5 MG TAB PO SCH ×2 (08:56→20:26)
[2019-12-09] MEDS: HYDROcodone/APAP 5/325 MG 1 TAB TAB PO PRN (09:03)
--- NOTE | 2019-12-09 09:03 | NUR ---
PASSED MEDICATIONS TO PT. VS STABLE. PT COMPLAINING OF PAIN, 08/29. PT DID NOT WANT MORPHINE. GAVE PT A NORCO.
--- NOTE | 2019-12-09 09:21 | NUR ---
PT OFF CPAP MACHINE, ON RA SATURATING 97%. NO RESPIRATORY DISTRESS NOTED.
--- NOTE | 2019-12-09 10:00 | NUR ---
PT COMPLAINING OF IV LEAKING. ASSESSED IV. IV IS PATENT. PLACED NEW DRESSING. PT IS RESTING IN BED. NO COMPLAINTS OF PAIN.
--- NOTE | 2019-12-09 12:20 | NUR ---
SOCIAL WORK NOTE: Patient's Orientation Unable To Assess Information Provided By GRACE PEDRO - DAUGHTER Comments SW WAS UNABLE TO MEET PATIENT AT BEDSIDE. SW COMPLETED ASSESSMENT WITH PATIENT'S DAUGHTER GRACE AND VERIFIED DEMOGRAPHICS. Insurance Advisor, Realtionship and Phone Number GRACE PEDRO DAUGHTER [phone] [facility] Power of Child Welfare Assistant No Does Patient Have a POLST No Identifying Problems No Social Work Triggers Is A Social Work Consult Needed No Mandate Report Filed No Explanation Of Identifying Problems PATIENT IS A 49-YEAR-OLD FEMALE ADMITTED FOR PYELONEPHRITIS. PATIENT HAS PMHX OF HYPERTENSION, COPD, TRESSA, AND NEPHROLITHIASIS. PATIENT'S DAUGHTER REPORTED NO HISTORY OF SUBSTANCE ABUSE OR MENTAL HEALTH. Admitted From Home Pre-Admission Level Of Functioning Status Independent/Ambulatory Prior Resources/Services Used In Last 12 Months No Prior Resources Used Prior DME No Prior DME Used Dialysis Comments PER DAUGHTER, PATIENT DOES NOT RECEIVE DIALYSIS. Living Situation Apartment Lives With Family Patient Had Caregiver No Home Support No Caregiver Issues Financial Issues No Known Financial Issue Referral To The Financial Counselor Needed No Factors/Needs No D/C Needs Identified Pt/Rep Participated In Discharge Plan Yes Patient/Family Agress With Discharge Plan Yes Discharge Plan Comments TENTATIVE DISCHARGE PLAN IS FOR PATIENT TO RETURN HOME. DC Plan Status Initiated
--- NOTE | 2019-12-09 13:37 | NUR ---
INITATED NEW IV INSERTION. PT HAS A RAC 22G RUNNING NS AT 100. ONLY 2 ATTEMPTS. NO COMPLAINTS OF PAIN. PT IS EATING LUNCH. NO SIGNS OF DISTRESS.
[2019-12-09 16:00] VITALS: BP 110/56
--- NOTE | 2019-12-09 16:00 | NUR ---
PT IS RESTING IN BED. NO COMPLAINTS OF PAIN. RESPIRATIONS ARE EVEN AND UNLABORED.
[2019-12-09 16:04] LABS: APPEARANCE,URINE CLEAR (CLEAR); BILIRUBIN,URINE NEGATIVE (NEGATIVE); BLOOD, URINE NEGATIVE (NEGATIVE); COLOR,URINE YELLOW (YELLOW); LEUKOCYTE ESTERASE ,URINE TRACE (NEGATIVE); NITRITE, URINE NEGATIVE (NEGATIVE); PH,URINE 5.5 (5.0-9.0); UGLUCOSE NEGATIVE (NEGATIVE)
[2019-12-09 16:21] LABS: COARSE GRANULAR CASTS,URINE 0-10 /LPF (None Seen); RBC,URINE 0-5 /HPF (0-5)
--- NOTE | 2019-12-09 19:33 | NUR ---
TRANSFER OF CARE TO PM RNSUDHA. PT IS RESTING IN BED. NO SIGNS OF DISTRESS.
--- NOTE | 2019-12-09 19:35 | NUR ---
RECEIVED PT IN STABLE CONDITION FROM AM NURSE. AWAKE, ALERT AND ORIENTED X4. MED SURG PT. ON O2 2L/NC. NO RESPIRATORY DISTRESS NOTED. DENIES ANY PAIN NOR DISCOMFORT AT THIS TIME. HAS IVF INFUSING WELL ON THE RT AC G#22. CLEAR AND PATENT. FREQ ROUNDS NEEDED. BED ON LOW POSITION AND SIDE RAILS UP X2. CALL LIGHT PLACED WITHIN EASY REACH. WILL CONTINUE TO MONITOR.
[2019-12-09 20:15] VITALS: BP 112/64
--- NOTE | 2019-12-09 20:45 | NUR ---
PT PROVIDED WITH SOME CRACKERS REQUESTED.
--- NOTE | 2019-12-09 20:57 | NUR ---
PT RESTING COMFORTABLY ON 2LNC IN SEMI-FOWLERS PT REQUESTING PAP ROUGHLY 2230
--- NOTE | 2019-12-09 21:24 | NUR ---
MADE ROUNDS. PT AWAKE. NO C/O ANY DISCOMFORT NOTED.
--- NOTE | 2019-12-09 22:02 | NUR ---
LEFT MESSAGE FOR DR. ARROYO FOR PT MAGNESIUM LEVEL THIS AM WAS 1.6 WITH ORDER.
[2019-12-09] MEDS ORDERED: MAGNESIUM OXIDE 400 MG TAB PO SCH (22:10)
--- NOTE | 2019-12-09 23:30 | NUR ---
GOT UP TO THE BATHROOM. VOIDED. URINE WAS STRAINED. NO STONES NOTED.
[2019-12-09 23:43] VITALS: BP 112/61
--- NOTE | 2019-12-09 23:52 | NUR ---
PT PLACED ON NOC NIV (SETTINGS CPAP 8 CMH2O 28%) PT IS SLIGHTLY ANX AND RAMP WAS STARTED WILL CONTINUE TO MONITOR
[2019-12-10] MEDS: NACL 0.9% 1,000 ML IV SCH ×2 (01:30→10:12)
--- NOTE | 2019-12-10 01:30 | NUR ---
MADE ROUNDS. PT IS ASLEEP. NO RESPIRATORY DISTRESS NOTED ON CPAP O2 SAT 97%.
--- NOTE | 2019-12-10 03:30 | NUR ---
MADE ROUNDS, PT ASLEEP. O2 SAT ON CPAP 96%. NO DISTRESS NOTED.
--- NOTE | 2019-12-10 05:30 | NUR ---
CHECKED ON PT. ASLEEP BUT CPAP MACHINE ALARMING. ADJUSTED . WORKING BACK. O2 SAT 97%.
[2019-12-10 05:31] LABS: BASOPHILS # (AUTO) 0.1 K/uL (0.00-0.22); BASOPHILS % (AUTO) 0.8 % (0.0-2.0); EOSINOPHILS # (AUTO) 0.5 K/uL (0-0.4); HEMATOCRIT 34.8 % (36-48); HEMOGLOBIN 11.2 g/dL (12.0-16.0); LYMPHOCYTES # (AUTO) 0.8 K/uL (2.5-16.5); LYMPHOCYTES % (AUTO) 7.9 % (20.5-51.1); MEAN CORPUSCULAR HEMOGLOBIN 27 pg (27-31); MEAN CORPUSCULAR HGB CONC 32 g/dL (33-37); MEAN CORPUSCULAR VOLUME 83.3 fL (80-94); MONOCYTES # (AUTO) 0.7 K/uL (0.8-1.0); MONOCYTES % (AUTO) 6.9 % (1.7-9.3); NEUTROPHILS % (AUTO) 79.4 % (42.2-75.2); PLATELET COUNT (AUTO) 300 K/uL (140-450); RED BLOOD CELL COUNT(AUTO) 4.18 MIL/uL (4.20-5.40); RED CELL DISTRIBUTION WIDTH 16.8 % (11.6-13.7)
[2019-12-10 06:02] LABS: ANION GAP 13.1 (8-16); CARBON DIOXIDE 30.4 mmol/L (21-32); CREATININE 0.9 mg/dL (0.6-1.3); POTASSIUM 3.5 mmol/L (3.5-5.1)
[2019-12-10 06:05] LABS: MAGNESIUM 1.5 mg/dL (1.8-2.4); PHOSPHORUS 2.8 mg/dL (2.5-4.9)
--- NOTE | 2019-12-10 06:55 | NUR ---
called us department about the result of renal us that did yesterday.result is belonging to [facility].they said will correct that.
--- NOTE | 2019-12-10 07:13 | NUR ---
ENDORSED PT IN STABLE CONDITION TO AM NURSE FOR CONTINUITY OF CARE.
--- NOTE | 2019-12-10 07:15 | NUR ---
RECEIVED REPORT FROM PM RNSUDHA. CONTINUING CARE OF PT. PT CAME FROM HOME. CC: LT ABD FLANK PAIN. DX: PYELONEPHRITIS WITH HYDRONEPHROSIS. HX: COPD, HTN, KIDNEY STONES, SLEEP APNEA. PT IS ALLERGIC TO VANCO. PT IS FULL CODE. IV: LAC 20G RUNNING NS AT 100. DIET: CARDIAC. PT IS ABLE TO AMBULATE, INDEPENDENT. O2: PT IS ON CPAP PM, NC 2L DAY. MAGNESIUM LEVEL: 1.5, WILL NOTIFY PHYSICIAN. PLAN: STRAIN URINE FOR KIDNEY STONES, F/U STRESS TEST OUTPATIENT.
[2019-12-10 08:00] VITALS: BP 111/62
--- NOTE | 2019-12-10 08:39 | NUR ---
PT AWAKE AND ALERT OFF BIPAP, PT ON 2L NC SPO2 98% CLR BILAT BREATH SOUNDS, WILL CONTINUE MONITOR AND TITRATE O2 INDICATED, RN AWARE
[2019-12-10] MEDS: hydrALAZINE 25 MG TAB PO SCH (08:41)
[2019-12-10] MEDS: HYDROcodone/APAP 5/325 MG 1 TAB TAB PO PRN (08:42)
[2019-12-10] MEDS: minoxidiL 2.5 MG TAB PO SCH (08:42)
[2019-12-10] MEDS: lisinopriL 20 MG TAB PO SCH (08:42)
[2019-12-10] MEDS: MONTELUKAST SODIUM 10 MG TAB PO SCH (08:42)
--- NOTE | 2019-12-10 08:42 | NUR ---
PASSED MEDICATIONS TO PT. PT WAS COMPLAINING OF BACK FLANK PAIN, 08/29. GAVE NORCO. VS STABLE. NO COMPLAINTS OF: SOB, NAUSEA, PT CHEST PAIN. PT RETURNED TO EATING BREAKFAST. OFFERED PT COLACE TO HELP WITH CONSTIPATION, PT REFUSED.
--- NOTE | 2019-12-10 09:58 | NUR ---
GAVE PT A HEATING PAD TO HELP WITH PAIN. GAVE MAG OXIDE PER PHYSICIANS ORDER. PT IS COMFORTABLE.
[2019-12-10] MEDS ORDERED: MAGNESIUM OXIDE 400 MG TAB PO SCH (10:00)
--- NOTE | 2019-12-10 10:54 | NUR ---
SPOKE WITH DR CHRISTIANSON REGARDING PTS US RESULTS. DR CHRISTIANSON DEEMS THE PT IS STABLE FOR DC. DR ARROYO NOTIFIED.
--- NOTE | 2019-12-10 11:11 | NUR ---
REMOVED IV. CANULA CAME OUT IN ONE PIECE. WAITING FOR DC ORDERS FROM SHASHI ARROYO.
[2019-12-10] MEDS ORDERED: NAPR-54 PO (11:34)
[2019-12-10] MEDS ORDERED: CIPR500T4 PO (11:34)
[2019-12-10 11:38] VITALS: BP 111/62
--- NOTE | 2019-12-10 12:30 | NUR ---
PT HAS BEEN DC. GAVE DC EDUCATION SESSION. PT SIGNED ALL DOCUMENTS. BROUGHT PT TO THE FRONT LOBBY VIA WHEEL CHAIR. NOTIFIED ATTENDANT ARCADE.
== END 2019-12-10 12:30 | disposition home or self-care (01) | DRG 720 ==
LOC: MED 14:15 → MMU 17:30
PROVIDERS: ADMIT Family Medicine; ATTEND Family Medicine
PROC: 5A09357 Assistance with Respiratory Ventilation, Less than 24 Consecutive Hours, Continuous Positive Airway Pressure (ICD-10-PCS; principal; 2019-12-09)
DX: A41.9 Sepsis, unspecified organism (principal); N13.6 Pyonephrosis; M94.0 Chondrocostal junction syndrome [Tietze]; N17.0 Acute kidney failure with tubular necrosis; E44.1 Mild protein-calorie malnutrition; Z68.41 Body mass index [BMI] 40.0-44.9, adult; Z87.442 Personal history of urinary calculi; I10 Essential (primary) hypertension; J44.9 Chronic obstructive pulmonary disease, unspecified; G47.33 Obstructive sleep apnea (adult) (pediatric); E87.6 Hypokalemia; E78.1 Pure hyperglyceridemia; E66.01 Morbid (severe) obesity due to excess calories; E83.42 Hypomagnesemia; D17.71 Benign lipomatous neoplasm of kidney
CPT/HCPCS: 36415; 71045; 76770; 80048; 80053; 80305; 81001; 82150; 83036; 83605; 83690; 83735; 83880; 84100; 84439; 84443; 84484; 84702; 85025; 85610; 85730; 87040; 87081; 87086; 93005; 93970; 96365; 96375; 99285; J0696; J1885; J2060; J2270; J2405; J7030; J7060; Q0092

== ENCOUNTER 2020-02-25 18:54 | Emergency (ER) | payer MEDICAID, SELFPAY ==
[~2020-02-25 18:54] MED LIST: CEPH250C16 PO; HYDR-1100 PO; HYDR-39 PO; HYDR-5122 PO; LON2.5 PO; ONDA4TAB PO
--- NOTE | 2020-02-25 19:30 | NUR ---
PT CALLED IN LOBBY AND OUTSIDE WITH ON ANSWER.
--- NOTE | 2020-02-25 20:30 | NUR ---
PT CALLED IN LOBBY AND OUTSIDE FOR SECOND TIME WITH ON ANSWER.
--- NOTE | 2020-02-25 20:30 | NUR ---
PT CALLED IN LOBBY AND OUTSIDE THIRD TIME WITH ON ANSWER. PATIENT LEFT WITHOUT BEING SEEN BY DR. HUGHES. NO FURTHER CARE PROVIDED FOR PATIENT.
== END 2020-02-25 19:30 | disposition left against medical advice (07) ==
LOC: MED 18:54
DX: Z53.21 Procedure and treatment not carried out due to patient leaving prior to being seen by health care provider (principal)

== ENCOUNTER 2021-06-13 19:00 | Emergency (ER) | payer MEDICAID ==
[~2021-06-13] VITALS: Ht 154.9 cm; Wt 2.1 kg
[~2021-06-13 19:00] MED LIST changes: +CARV6.25 PO; -CEPH250C16 PO; +HYDR-2853 PO; -HYDR-39 PO; -HYDR-5122 PO; +OMEP-303 PO; -ONDA4TAB PO
[2021-06-13 19:03] VITALS: BP 176/114
[2021-06-13] MEDS ORDERED: KETOROLAC 30 MG/ML VIAL IM ONE (19:25)
[2021-06-13] MEDS ORDERED: NAPR-54 PO (20:07)
[2021-06-13 20:20] VITALS: BP 176/114
== END 2021-06-13 20:20 | disposition home or self-care (01) ==
LOC: MED 19:00
DX: S56.811A Strain of other muscles, fascia and tendons at forearm level, right arm, initial encounter (principal); W20.8XXA Other cause of strike by thrown, projected or falling object, initial encounter; Y93.89 Activity, other specified; Y92.89 Other specified places as the place of occurrence of the external cause; Y99.8 Other external cause status
CPT/HCPCS: 73080; 96372; 99283; J1885